=== PATIENT | female | born 1955 | race Two or more races ===

== ENCOUNTER 2018-12-21 17:36 | Emergency (ER) | payer MEDICAID, OTHER ==
[~2018-12-21] VITALS: Ht 157.5 cm; Wt 87.3 kg
[~2018-12-21 17:36] MED LIST: FAMO40TA73 PO; HYDR-4383 PO; ONDA4TAB6 PO
[2018-12-21 17:46] VITALS: BP 152/83
[2018-12-21] MEDS ORDERED: HYDROcodone/acetaminophen 10/325mg tab PO ONE (19:30)
[2018-12-21] MEDS ORDERED: HYDROcodone/acetaminophen 5mg/325mg tablet PO ONE (21:05)
[2018-12-21] MEDS ORDERED: IBUP-1984 PO (21:09)
[2018-12-21] MEDS ORDERED: HYDR-4353 PO (21:09)
== END 2018-12-21 21:43 | disposition home or self-care (01) ==
LOC: ER 17:37
DX: S92.411A Displaced fracture of proximal phalanx of right great toe, initial encounter for closed fracture (principal); Z90.49 Acquired absence of other specified parts of digestive tract; Z98.890 Other specified postprocedural states; Z79.899 Other long term (current) drug therapy; W18.39XA Other fall on same level, initial encounter; Y93.89 Activity, other specified; Y92.89 Other specified places as the place of occurrence of the external cause; Y99.8 Other external cause status
CPT/HCPCS: 29515; 73630; 99284

== ENCOUNTER 2019-01-10 11:37 | Outpatient (CLI) | payer MEDICAID, OTHER | END 2019-01-10 13:50 | disposition home or self-care (01) | LOC: ORTHO 11:37 | PROVIDERS: ATTEND Orthopaedic Surgery | DX: S93.491D Sprain of other ligament of right ankle, subsequent encounter (principal); R22.41 Localized swelling, mass and lump, right lower limb; X58.XXXD Exposure to other specified factors, subsequent encounter | CPT/HCPCS: 73630; G0463 ==

== ENCOUNTER 2024-09-13 17:09 | Emergency (ER) | payer MEDICARE, MEDICAID ==
[~2024-09-13] VITALS: Ht 157.5 cm; Wt 86.6 kg
[2024-09-13 17:10] VITALS: BP 133/74; PULSE 116; O2SAT 96
[2024-09-13 18:36] VITALS: RESP 16
[2024-09-13] MEDS: HYDROcodone/acetaminophen 5mg/325mg tablet PO ONE (18:36)
[2024-09-13] MEDS ORDERED: HYDR-3965 PO (18:57)
[2024-09-13 19:08] VITALS: TEMP 98
== END 2024-09-13 19:09 | disposition home or self-care (01) ==
LOC: ER 17:10
DX: R07.89 Other chest pain (principal); Z79.899 Other long term (current) drug therapy; Z90.49 Acquired absence of other specified parts of digestive tract; J44.9 Chronic obstructive pulmonary disease, unspecified; V49.9XXA Car occupant (driver) (passenger) injured in unspecified traffic accident, initial encounter; Y93.89 Activity, other specified; Y92.89 Other specified places as the place of occurrence of the external cause; Y99.8 Other external cause status
CPT/HCPCS: 71045; 99283

== ENCOUNTER 2025-05-08 12:29 | Emergency (ER) | payer MEDICARE, MEDICAID ==
[~2025-05-08] VITALS: Ht 152.4 cm; Wt 86.9 kg
[2025-05-08 12:50] VITALS: BP 135/90; PULSE 86; RESP 16; O2SAT 97
--- NOTE | 2025-05-08 12:53 | Physician Documentation ---
History of Present Illness Stated Complaint: FINGER PAIN Primary Medical Doctor: judy keller in HPI 69-year-old female that presents to the emergency department for evaluation of injury sustained to the 2nd digit on her left hand after exiting [facility] earlier today. Patient reports that she accidentally slammed her hand in the door at [place]. Source some swelling noted to the distal end of the digit with hematoma and bruising around the nail bed. Also hematoma noted to the pad of the finger. Patient's motion and sensation are intact. No other symptoms reported at this time. Medication Reconciliation Allergies: Coded Allergies: No Known Allergies (Unverified , 05/08/25) Scheduled Famotidine (Pepcid), 1 TABLET PO DAILY Scheduled PRN Hydrocodone/Acetaminophen ([place] 5-325 Tablet), 1 TABLET PO Q4H PRN for pain Ondansetron Hcl (Zofran), 1 TABLET PO Q6H PRN for nausea Past Medical History Past Medical History: No Pertinent History Past Surgical History: cholecystectomy, other Alcohol Use: Sober Drug Use: none Lives with: Family Lives In: Home Occupation: infant, disabled Physical Exam Physical Exam VITALS: Reviewed and as above. GENERAL: Alert, no apparent distress. HEENT: Normocephalic, atraumatic, PERRL, EOMI, dry mucosa, no erythema RESPIRATORY: Lungs clear, normal breath sounds, no respiratory distress. CHEST: No accessory muscle use, no retractions CV: Regular rate, rhythm, no edema, no murmur, No: JVD GI: Soft, non-tender, bowels sounds present, no rebound, guarding, or rigidity BACK: No CVA tenderness, or swelling MUSCULOSKELETAL No deformities, edema noted the distal end of the 2nd digit on the left hand, reduced range of motion and tenderness with manipulation noted on examination. SKIN: Warm and dry, no rash NEURO: Oriented x4, No motor or sensory deficit PSYCH: Normal mood and affect, no agitation Medical Decision Making Additional information obtaine: other Findings Chief Complaint: Left hand second digit injury History of Present Illness: 69-year-old female presented to the emergency department for evaluation of injury to the second digit of her left hand sustained earlier today when she accidentally slammed her hand in a door at [place]. Patient reports swelling, pain, and bruising to the affected finger. Physical Examination: Examination revealed swelling, hematoma, and bruising around the nail bed and pad of the second digit, left hand. Neurovascular examination demonstrated intact motion and sensation distally. Diagnostic Studies: Plain radiographs of the left hand demonstrated a distal tuft fracture of the second digit with mild soft tissue edema and small hematoma. Emergency Department Course: Patient received acetaminophen and ibuprofen for pain management. Ondansetron was administered for acute nausea. Due to the patient's age over 65 years and presentation with acute nausea, a 12-lead electrocardiogram was obtained, which showed no acute abnormalities. The subungual hematoma was lanced and drained. The wound was cleaned and dressed. The affected digit was splinted for immobilization and fracture stabilization. Medical Decision Making: This is a low-complexity case involving an uncomplicated distal tuft fracture with associated subungual hematoma. The patient demonstrated appropriate response to initial therapy with pain control and successful hematoma drainage. No high-risk features were identified that would necessitate hospital admission. The patient's neurovascular examination remained intact throughout the ED course, and she was deemed safe for discharge home with outpatient follow-up. Discharge Diagnosis: Distal tuft fracture, second digit, left hand, with subungual hematoma Discharge Plan: Continue acetaminophen 650 mg every 6 hours as needed for pain Continue ibuprofen 400 mg every 6-8 hours as needed for pain and inflammation Keep finger splinted and elevated above heart level when possible to reduce swelling Keep wound clean and dry; may remove dressing in 48 hours Follow up with primary care provider within 5-7 days for wound check and fracture reassessment Return Precautions: Patient instructed to return to the emergency department or seek immediate medical attention for increasing pain not controlled by medication, signs of infection (increasing redness, warmth, purulent drainage, fever), loss of sensation or motion in the finger, or any other concerning symptoms. Disposition: Discharged home in stable condition with verbal and written discharge instructions provided. Patient demonstrated understanding of discharge instructions, follow-up plan, and return precautions. Differential Dx:Considerations: Other, N/A Departure Disposition: 01 HOME / SELF CARE / HOMELESS Impression: Primary Impression: Fracture of metacarpal bone Condition: Stable Discharge Instructions: Fracture, Finger Additional Instructions: Your Diagnosis You have a broken bone at the tip of your second finger (also called a distal tuft fracture) on your left hand. You also had a collection of blood under your fingernail (subungual hematoma) that was drained in the emergency department. What We Did Today Drained the blood from under your fingernail to relieve pressure and pain Cleaned your wound Applied a splint to protect your finger while it heals Gave you medications for pain and nausea Performed a heart tracing (EKG) because of your nausea Taking Care of Your Finger at Home Splint Care: Keep your splint on at all times for the next 4-6 weeks unless your doctor tells you otherwise Keep the splint clean and dry Do not remove the splint to showercover it with a plastic bag If the splint becomes loose, wet, or damaged, contact your primary care doctor Wound Care: Keep your finger elevated above the level of your heart as much as possible, especially for the first 48-72 hoursthis helps reduce swelling and pain You may remove the dressing in 48 hours Keep the wound clean and dry Watch for signs of infection (see "When to Seek Help" below) Pain Management: Take acetaminophen (Tylenol) 650 mg every 6 hours as needed for pain Take ibuprofen (Advil or Motrin) 400 mg every 6-8 hours as needed for pain and swelling Do not take more than the recommended dose Take ibuprofen with food to protect your stomach Ice your finger for 15-20 minutes at a time, several times a day, to help with pain and swelling (place a thin cloth between the ice and your skin) Activity Restrictions: Avoid using your injured finger for gripping, pinching, or lifting Avoid activities that could bump or re-injure your finger You may use your other fingers normally Follow-Up Care You must see your primary care doctor within 5-7 days for a wound check and to make sure your fracture is healing properly. Call to schedule this appointment as soon as possible. When to Seek Help Return to the emergency department or call 911 if you experience: Increasing pain that is not relieved by your pain medications Signs of infection: Increasing redness, warmth, or swelling Red streaks going up your finger or hand Pus or foul-smelling drainage from the wound Fever of 100.4F (38C) or higher Loss of feeling (numbness) in your fingertip Inability to move your finger Fingertip that turns blue, white, or very pale Fingertip that feels cold compared to your other fingers Any other symptoms that concern you What to Expect Most fingertip fractures heal well with proper care. Your finger may remain swollen and sensitive for several weeks. If you had blood drained from under your nail, you may lose that fingernail as a new one grows inthis is normal and the new nail should grow back normally over several months. Important Reminders Keep all follow-up appointments Take your medications as directed Keep your finger elevated and protected Watch for signs of infection Do not hesitate to seek help if you have concerns Referrals: NO PRIMARY CARE PROVIDER (PCP) Prescriptions Hydrocodone Bit/Acetaminophen 5/325 MG ([place] 5/325 MG) 5 Mg/325 Mg Tablet 1 TAB PO Q12H PRN for pain for 3 Days, #6 TAB Prov: JOSIANE SHAH 05/08/25 Education Educated: Patient Educated regarding: diagnosis, treatment, need for follow up Signature Scribe Signature: A Attestation: Scribed for Josiane Shah by EVIN Ma . 05/08/25 15:20 JOSIANE SHAH May 08, 2025 12:53
--- NOTE | 2025-05-08 14:15 | RADIOLOGY REPORT ---
CLINICAL INDICATION: Sustained after patient getting finger slammed in door. Attention left index finger. TECHNIQUE: AP view of the left hand and 2 additional views of the left index finger DI FINGER(S) COMPARISON: None FINDINGS/IMPRESSION: 1. Probable minimally displaced oblique fracture of the left index finger distal phalangeal tuft. Correlate with focal tenderness. 2. No other fractures are identified about the left hand. 3. 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
[2025-05-08] MEDS: ibuprofen tablet 400 MG TABLET PO ONE (14:50)
[2025-05-08] MEDS: ondansetron 4mg rapidly disintigrating tab PO ONE (15:05)
[2025-05-08] MEDS ORDERED: HYDR-3965 PO (15:50)
[2025-05-08 16:02] VITALS: TEMP 97.3
== END 2025-05-08 16:03 | disposition home or self-care (01) ==
LOC: ER 12:29
DX: S62.391A Other fracture of second metacarpal bone, left hand, initial encounter for closed fracture (principal); Z90.49 Acquired absence of other specified parts of digestive tract; Z79.899 Other long term (current) drug therapy; W23.2XXA Caught, crushed, jammed or pinched between a moving and stationary object, initial encounter; Y93.89 Activity, other specified; Y92.89 Other specified places as the place of occurrence of the external cause; Y99.8 Other external cause status
CPT/HCPCS: 29130; 73140; 99284; A6402; A6449